=== PATIENT | male | born 1935 ===

== ENCOUNTER 2023-12-23 19:01 | Inpatient (IN) | payer BC, MEDICARE ==
[~2023-12-23 19:01] MED LIST: Iopamidol 300 61% 100 ML VIAL FS ONE
[2023-12-23 20:04] LABS: #Basophils 0.01 10x3/uL (0.0-0.2); #Eosinphils 0.01 10x3/uL (0.0-0.5); #Monocytes 0.96 10x3/uL (0.0-1.1); %Basophils 0.1 % (0.0-2.0); %Eosinophils 0.1 % (0.0-6.0); %Lymphocytes 5.8 % (18.0-47.0); %Monocytes 7.1 % (0.0-10.0); %Neutrophils 86.5 % (40.0-75.0); Hematocrit 31.5 % (38.8-50.0); Hemoglobin 10.4 g/dL (13.5-17.5); Mean Corpuscular Hemoglobin 30.1 pg (27.0-33.0); Mean Corpuscular Volume 91.3 fl (81.2-95.1); Mean Platelet Volume 10.9 fl (7.4-10.4); Platelet Count 283 10x3/uL (150-450); RBC Distribution Width 15.9 % (11.5-14.5); Red Blood Cell (RBC) Count 3.45 10x6/uL (4.32-5.72); White Blood Cell (WBC) Count 13.5 10x3/uL (3.5-10.5)
[2023-12-23 20:10] LABS: INR-International Normal Ratio 1.3; PTT 34.6 sec (22.0-33.0); Prothrombin Time 13.7 sec (9.5-12.1)
[2023-12-23 20:12] LABS: ALT (SGPT) 16 U/L (8-55); AST (SGOT) 30 U/L (5-34); Albumin 2.8 g/dL (3.4-4.8); Alkaline Phosphatase 100 U/L (40-110); Anion Gap 19 mmol/L (10-20); BUN (Urea Nitrogen) 52 mg/dL (8.4-25.7); Bilirubin, Total 0.9 mg/dL (0.2-1.2); Calc. Creatinine Clearance 0 mL/min (70-130); Calcium 9.5 mg/dL (7.8-10.44); Carbon Dioxide 26 mmol/L (23-31); Chloride 100 mmol/L (98-107); Estimated GFR 46; Globulin 4.5 g/dL (2.4-3.5); Glucose 158 mg/dL (83-110); Lipase 22 U/L (8-78); Potassium 4.5 mmol/L (3.5-5.1); Protein, Total 7.3 g/dL (5.8-8.1); Sodium 140 mmol/L (136-145)
[2023-12-23 20:17] LABS: Troponin I 0.031 ng/mL (< 0.028)
[2023-12-23] MEDS ORDERED: Metoprolol Tartrate 5 MG (5 mL) VIAL ONE (21:02)
[2023-12-23] MEDS ORDERED: Dextrose 5% in Water 1,000 ML IV PRN (22:01)
[2023-12-23] MEDS ORDERED: Ondansetron PF 4 MG/2 ML Vial IVP PRN (22:01)
[2023-12-23] MEDS ORDERED: Glucagon 1 MG/ML KIT IM PRN (22:01)
[2023-12-23] MEDS ORDERED: Dextrose 50% Abboject 50 ML SYRINGE SLOW IVP PRN (22:01)
[2023-12-23] MEDS ORDERED: Metoprolol Tartrate 5 MG (5 mL) VIAL IVP PRN (22:03)
[2023-12-23] MEDS ORDERED: Morphine 4 MG/ML VIAL ONE (22:23)
[2023-12-23] MEDS ORDERED: Ondansetron PF 4 MG/2 ML Vial ONE (22:23)
[2023-12-23] MEDS ORDERED: [UNRECOGNIZED DRUG - REMARK] IVPB PRN (22:25)
[2023-12-23] MEDS: Lactated Ringer's 1,000 ML IV SCH (23:05)
[2023-12-24] MEDS: Albumin 25% 25 GM (100 mL) BOT IVPB SCH (00:24)
[2023-12-24] MEDS: Metoprolol Tartrate 5 MG (5 mL) VIAL IVP SCH (04:23)
[2023-12-24] MEDS: Furosemide 20 MG (2 mL) VIAL SLOW IVP SCH (04:44)
[2023-12-24 04:54] LABS: Anion Gap 17 mmol/L (10-20); BUN (Urea Nitrogen) 53 mg/dL (8.4-25.7); Calc. Creatinine Clearance 67 mL/min (70-130); Calcium 9.6 mg/dL (7.8-10.44); Carbon Dioxide 27 mmol/L (23-31); Chloride 101 mmol/L (98-107); Estimated GFR 49; Glucose 147 mg/dL (83-110); Potassium 4.1 mmol/L (3.5-5.1); Sodium 141 mmol/L (136-145)
[2023-12-24 05:04] LABS: Troponin I 0.034 ng/mL (< 0.028)
[2023-12-24 05:11] LABS: INR-International Normal Ratio 1.2; PTT 35.3 sec (22.0-33.0); Prothrombin Time 13.3 sec (9.5-12.1)
[2023-12-24 05:13] LABS: #Neutrophils 8.75 10x3/uL (1.5-8.4); %Lymphocytes 6.7 % (18.0-47.0); %Monocytes 9.5 % (0.0-10.0); %Neutrophils 83.5 % (40.0-75.0); Hematocrit 29.1 % (38.8-50.0); Hemoglobin 9.2 g/dL (13.5-17.5); Mean Corpuscular HGB CONC 31.6 g/dL (32.0-36.0); Mean Corpuscular Hemoglobin 29.4 pg (27.0-33.0); Mean Platelet Volume 10.8 fl (7.4-10.4); Platelet Count 274 10x3/uL (150-450); Red Blood Cell (RBC) Count 3.13 10x6/uL (4.32-5.72); White Blood Cell (WBC) Count 10.5 10x3/uL (3.5-10.5)
[2023-12-24] MEDS: Heparin 10,000 UNITS/ 10 ML VIAL SLOW IVP SCH (06:03)
[2023-12-24] MEDS: Heparin 25,000 units/D5W 500 ML IVPB SCH (06:04)
[2023-12-24] MEDS ORDERED: Furosemide 20 MG (2 mL) VIAL SLOW IVP SCH (09:00)
[2023-12-24] MEDS ORDERED: levETIRAcetam in NS 500 MG in Premix 1 BAG IVPB SCH (09:00)
[2023-12-24] MEDS: levETIRAcetam 500 MG (5 mL) VIAL SLOW IVP SCH (09:25)
[2023-12-24] MEDS: Pantoprazole 40 MG VIAL IVP SCH (09:25)
[2023-12-24 09:28] VITALS: BMI 38.2
[2023-12-24] MEDS: Morphine 2 MG/ML VIAL SLOW IVP PRN (09:34)
[2023-12-24 12:40] LABS: INR-International Normal Ratio 1.2; PTT 67.6 sec (22.0-33.0); Prothrombin Time 13.2 sec (9.5-12.1)
[2023-12-24] MEDS ORDERED: EPINEPHrine 1 MG/ML VIAL ONE (13:53)
[2023-12-24] MEDS ORDERED: Bupivacaine PF 0.5% 30 ML VIAL ONE (13:53)
[2023-12-24] MEDS ORDERED: CEFAZOLIN 2 GM VIAL ONE (14:47)
[2023-12-24] MEDS ORDERED: Etomidate 40 MG (20 mL) VIAL ONE (14:47)
[2023-12-24] MEDS ORDERED: Phenylephrine 10 MG/ML VIAL ONE (14:47)
[2023-12-24] MEDS ORDERED: Vasopressin 20 UNITS/ML VIAL ONE (14:47)
[2023-12-24] MEDS ORDERED: Lidocaine 1% PF 5 ML VIAL ONE (14:52)
[2023-12-24] MEDS ORDERED: fentaNYL 50 mcg/mL 1 mL Vial ONE (14:52)
[2023-12-24] MEDS ORDERED: SUGAMMADEX SODIUM 200 MG/2 ML VIAL ONE ×2 (14:52→16:23)
[2023-12-24] MEDS ORDERED: Rocuronium Bromide 10 MG/ML (10ML VIAL) ONE (14:53)
[2023-12-24] MEDS ORDERED: PHENYLEPHRINE-NS 100 MCG/ML 10 ML SYRINGE ONE (15:09)
[2023-12-24] MEDS ORDERED: Ondansetron PF 4 MG/2 ML Vial ONE (16:16)
[2023-12-24 18:17] LABS: INR-International Normal Ratio 1.3; PTT 32.7 sec (22.0-33.0); Prothrombin Time 13.4 sec (9.5-12.1)
[2023-12-24 19:35] LABS: INR-International Normal Ratio 1.3; PTT 33.4 sec (22.0-33.0); Prothrombin Time 13.6 sec (9.5-12.1)
[2023-12-24] MEDS: HYDROmorphone 0.5 MG/0.5 ML SYRINGE SLOW IVP SCH (20:26)
[2023-12-25] MEDS: Sodium Chloride 0.9% 1,000 ML IV SCH ×2 (00:37→04:57)
[2023-12-25] MEDS: Digoxin 0.5 MG/2 ML AMP SLOW IVP SCH ×3 (00:47→05:01)
[2023-12-25] MEDS: Magnesium Sulfate/D5W 1 GM in Premix 1 BAG IVPB SCH (00:51)
[2023-12-25 01:15] LABS: ALV-art Gradient 90.635 mmHg (0-20); Actual Bicarbonate (HCO3a) 27.5 mEq/L (22-28); Analyzer IN Cardio CS ICU; Base Excess (BEa) 1.1 mEq/L (-2.0 to +3.0); CO2 Tension 53.3 mmHg (35.0-45.0); Calcium, Ionized (arterial) 1.12 mmol/L (1.12-1.30); Carboxyhemoglobin (COHb) 0.8 gm% (0.0-3.0); Critical Notified By: CP.PH; Hematocrit-ABG 27 % (42.0-52.0); Hemoglobin (Hb) 9.2 g/dL (14.0-18.0); O2 Tension (PaO2), arterial 70.9 mmHg (> 60.0); Puncture Site LBA; RapidComm Collect By CP.PH; pH, Arterial 7.331 (7.35-7.45)
[2023-12-25 01:40] LABS: #Basophils 0.01 10x3/uL (0.0-0.2); #Monocytes 0.57 10x3/uL (0.0-1.1); #Neutrophils 6.05 10x3/uL (1.5-8.4); %Basophils 0.1 % (0.0-2.0); %Lymphocytes 8.5 % (18.0-47.0); %Monocytes 7.8 % (0.0-10.0); %Neutrophils 83.3 % (40.0-75.0); Hematocrit 23.9 % (38.8-50.0); Hemoglobin 7.6 g/dL (13.5-17.5); Mean Corpuscular HGB CONC 31.8 g/dL (32.0-36.0); Mean Corpuscular Hemoglobin 29.7 pg (27.0-33.0); Mean Corpuscular Volume 93.4 fl (81.2-95.1); Mean Platelet Volume 10.7 fl (7.4-10.4); Platelet Count 250 10x3/uL (150-450); RBC Distribution Width 15.8 % (11.5-14.5); Red Blood Cell (RBC) Count 2.56 10x6/uL (4.32-5.72); White Blood Cell (WBC) Count 7.3 10x3/uL (3.5-10.5)
[2023-12-25] MEDS: Piperacillin/Tazobactam 3.375 GM in Sodium Chloride 0.9% 100 ML IVPB SCH ×2 (01:41→05:59)
[2023-12-25 01:50] LABS: INR-International Normal Ratio 1.3; PTT 31.7 sec (22.0-33.0); Prothrombin Time 13.7 sec (9.5-12.1)
[2023-12-25 01:53] LABS: Magnesium 1.8 mg/dL (1.6-2.6)
[2023-12-25] MEDS: VANCOMYCIN 2 GRAM/400 ML BAG 2 GM in Premix 1 BAG IVPB SCH (01:54)
[2023-12-25] MEDS: VANCOMYCIN 2 GRAM/400 ML BAG IVPB SCH (02:03)
[2023-12-25] MEDS: Albumin 25% 25 GM (100 mL) BOT IVPB SCH (02:05)
[2023-12-25 02:16] LABS: Anion Gap 17 mmol/L (10-20); BUN (Urea Nitrogen) 60 mg/dL (8.4-25.7); Calc. Creatinine Clearance 57 mL/min (70-130); Calcium 8.5 mg/dL (7.8-10.44); Carbon Dioxide 26 mmol/L (23-31); Chloride 105 mmol/L (98-107); Estimated GFR 40; Glucose 111 mg/dL (83-110); Potassium 4.1 mmol/L (3.5-5.1); Sodium 144 mmol/L (136-145)
[2023-12-25] MEDS: Albumin 25% 100 ML ONE (02:19)
[2023-12-25] MEDS: NOREPINEPHRINE 8 MG/250 ML-D5W 250 ML IVPB SCH (02:23)
[2023-12-25 03:06] LABS: Bilirubin Neg (Negative); Blood, Urine 250 (Negative); Clarity Slightly Cloudy (Clear); Glucose, Urine (Dipstick) Normal (Negative); Ketone, Urine 5 mg/dL (Negative); Leukocyte 500 (Negative); Nitrite Negative (Negative); Protein, Urine (Dipstick) 100 mg/dl (Neg-Trace); Specific Gravity, Urine 1.015 (1.005-1.030)
[2023-12-25 03:16] LABS: Bacteria/HPF 3+ HPF (None Seen); CAUTI Indications for Culture Alt mental st,lethar
[2023-12-25 03:18] LABS: Urine Culture Reflex Yes Yes
[2023-12-25] MEDS: Etomidate 40 MG (20 mL) VIAL IVP SCH (04:31)
[2023-12-25] MEDS: Rocuronium Bromide 10 MG/ML (10ML VIAL) IVP SCH (04:34)
[2023-12-25] MEDS: Rocuronium Bromide 10 MG/ML (10ML VIAL) ONE (04:57)
[2023-12-25 05:20] LABS: Actual Bicarbonate (HCO3a) 26.4 mEq/L (22-28); Analyzer IN Cardio CS ICU; Base Excess (BEa) 0.2 mEq/L (-2.0 to +3.0); CO2 Tension 51.5 mmHg (35.0-45.0); Carboxyhemoglobin (COHb) 0.8 gm% (0.0-3.0); Critical Notified By: CP.PH; Hematocrit-ABG 23 % (42.0-52.0); Hemoglobin (Hb) 7.7 g/dL (14.0-18.0); O2 Tension (PaO2), arterial 83.1 mmHg (> 60.0); Potassium - ABG Lab 4.09 mmol/L (3.70-5.30); Puncture Site Arterial Line; RapidComm Collect By CBN; pH, Arterial 7.328 (7.35-7.45)
[2023-12-25 05:22] LABS: ALV-art Gradient 137.725 mmHg (0-20)
[2023-12-25] MEDS: Hydrocortisone Sod Succ/PF 100 mg/2 ml Vial IVP SCH (05:59)
[2023-12-25 09:31] LABS: INR-International Normal Ratio 1.2; PTT 34.7 sec (22.0-33.0); Prothrombin Time 13.1 sec (9.5-12.1)
[2023-12-25 10:28] LABS: Hematocrit 24.1 % (38.8-50.0); Hemoglobin 7.8 g/dL (13.5-17.5)
[2023-12-25] MEDS ORDERED: Propofol BOLUS 1,000 MG/100 ML VIAL IV PRN (11:45)
[2023-12-25] MEDS ORDERED: Propofol 1,000 MG/100 ML VIAL IV PRN (11:45)
[2023-12-25] MEDS: FENTANYL 2,000MCG/100-0.9%NACL 100 ML IVPB SCH (12:06)
[2023-12-25 12:16] LABS: INR-International Normal Ratio 1.2; PTT 35.5 sec (22.0-33.0); Prothrombin Time 13.2 sec (9.5-12.1)
[2023-12-25] MEDS ORDERED: Phenylephrine 40 MG in Sodium Chloride 0.9% 250 ML 250 ML IVPB SCH (14:30)
[2023-12-25 14:45] LABS: Hematocrit 22.9 % (38.8-50.0); Hemoglobin 7.3 g/dL (13.5-17.5)
[2023-12-25] MEDS: Phenylephrine 40 MG/NS 250 ML 40 MG in Premix 1 BAG IVPB SCH (16:06)
[2023-12-25] MEDS: Furosemide 40 MG (4 mL) VIAL SLOW IVP SCH (16:06)
[2023-12-25] MEDS: Ventilator Sedation Protocol 1 EACH FS ONE (19:10)
[2023-12-25] MEDS: HumaLOG 300 UNITS/3 ML VIAL SC PRN (23:30)
[2023-12-26 04:53] LABS: #Basophils 0.01 10x3/uL (0.0-0.2); #Monocytes 1.11 10x3/uL (0.0-1.1); #Neutrophils 11.32 10x3/uL (1.5-8.4); %Basophils 0.1 % (0.0-2.0); %Lymphocytes 4.9 % (18.0-47.0); %Monocytes 8.4 % (0.0-10.0); %Neutrophils 85.8 % (40.0-75.0); Hematocrit 20.1 % (38.8-50.0); Hemoglobin 6.7 g/dL (13.5-17.5); Mean Corpuscular HGB CONC 33.3 g/dL (32.0-36.0); Mean Corpuscular Volume 90.1 fl (81.2-95.1); Mean Platelet Volume 10.7 fl (7.4-10.4); Platelet Count 224 10x3/uL (150-450); Red Blood Cell (RBC) Count 2.23 10x6/uL (4.32-5.72); White Blood Cell (WBC) Count 13.2 10x3/uL (3.5-10.5)
[2023-12-26 05:06] LABS: Anion Gap 20 mmol/L (10-20); BUN (Urea Nitrogen) 66 mg/dL (8.4-25.7); Calc. Creatinine Clearance 51 mL/min (70-130); Calcium 8.4 mg/dL (7.8-10.44); Carbon Dioxide 21 mmol/L (23-31); Chloride 105 mmol/L (98-107); Estimated GFR 35; Glucose 166 mg/dL (83-110); Potassium 3.8 mmol/L (3.5-5.1); Sodium 142 mmol/L (136-145)
[2023-12-26 05:12] LABS: Vancomycin, Random 59.4 ug/mL (See Comment)
[2023-12-26] MEDS: Furosemide 40 MG (4 mL) VIAL SLOW IVP SCH ×2 (09:47→15:22)
[2023-12-26 10:13] LABS: Vancomycin, Random 32.2 ug/mL (See Comment)
[2023-12-27] MEDS: Fentanyl BOLUS 250 ML IVPB PRN (00:42)
[2023-12-27 04:14] LABS: #Basophils 0.02 10x3/uL (0.0-0.2); #Eosinphils 0.02 10x3/uL (0.0-0.5); #Monocytes 1.11 10x3/uL (0.0-1.1); #Neutrophils 10.04 10x3/uL (1.5-8.4); %Basophils 0.2 % (0.0-2.0); %Eosinophils 0.2 % (0.0-6.0); %Lymphocytes 7.1 % (18.0-47.0); %Monocytes 9.1 % (0.0-10.0); %Neutrophils 82.1 % (40.0-75.0); Hematocrit 25.1 % (38.8-50.0); Hemoglobin 8.6 g/dL (13.5-17.5); Mean Corpuscular HGB CONC 34.3 g/dL (32.0-36.0); Mean Corpuscular Hemoglobin 30.2 pg (27.0-33.0); Mean Corpuscular Volume 88.1 fl (81.2-95.1); Mean Platelet Volume 10.7 fl (7.4-10.4); Platelet Count 222 10x3/uL (150-450); RBC Distribution Width 16.2 % (11.5-14.5); Red Blood Cell (RBC) Count 2.85 10x6/uL (4.32-5.72); White Blood Cell (WBC) Count 12.2 10x3/uL (3.5-10.5)
[2023-12-27 04:41] LABS: Anion Gap 18 mmol/L (10-20); BUN (Urea Nitrogen) 66 mg/dL (8.4-25.7); Calc. Creatinine Clearance 55 mL/min (70-130); Calcium 8.7 mg/dL (7.8-10.44); Carbon Dioxide 22 mmol/L (23-31); Chloride 111 mmol/L (98-107); Estimated GFR 38; Glucose 149 mg/dL (83-110); Sodium 148 mmol/L (136-145)
[2023-12-27] MEDS: Potassium Chloride 20 MEQ in Premix 1 BAG IVPB SCH (05:17)
[2023-12-27 05:28] LABS: Magnesium 2.1 mg/dL (1.6-2.6)
[2023-12-27] MEDS: Hydrocortisone Sod Succ/PF 100 mg/2 ml Vial IVP SCH (08:18)
[2023-12-27] MEDS: Morphine 2 MG/ML VIAL SLOW IVP PRN (08:20)
[2023-12-27 10:45] LABS: Potassium 3.4 mmol/L (3.5-5.1)
[2023-12-27] MEDS ORDERED: Vancomycin 1 GM in Sodium Chloride 0.9% 250 ML 250 ML IVPB SCH (11:00)
[2023-12-28] MEDS: Dextrose 5% in Water 1,000 ML IV SCH (01:50)
[2023-12-28 03:04] LABS: #Basophils 0.01 10x3/uL (0.0-0.2); #Eosinphils 0.02 10x3/uL (0.0-0.5); #Monocytes 0.67 10x3/uL (0.0-1.1); #Neutrophils 8.25 10x3/uL (1.5-8.4); %Basophils 0.1 % (0.0-2.0); %Eosinophils 0.2 % (0.0-6.0); %Lymphocytes 6.5 % (18.0-47.0); %Monocytes 6.9 % (0.0-10.0); %Neutrophils 85.3 % (40.0-75.0); Hematocrit 26.7 % (38.8-50.0); Hemoglobin 8.7 g/dL (13.5-17.5); Mean Corpuscular HGB CONC 32.6 g/dL (32.0-36.0); Mean Platelet Volume 10.1 fl (7.4-10.4); Platelet Count 225 10x3/uL (150-450); RBC Distribution Width 16.3 % (11.5-14.5); White Blood Cell (WBC) Count 9.7 10x3/uL (3.5-10.5)
[2023-12-28 03:18] LABS: Anion Gap 17 mmol/L (10-20); BUN (Urea Nitrogen) 66 mg/dL (8.4-25.7); Calc. Creatinine Clearance 59 mL/min (70-130); Calcium 8.7 mg/dL (7.8-10.44); Carbon Dioxide 21 mmol/L (23-31); Chloride 116 mmol/L (98-107); Estimated GFR 42; Glucose 161 mg/dL (83-110); Potassium 2.8 mmol/L (3.5-5.1); Vancomycin, Random 16.1 ug/mL (See Comment)
[2023-12-28 03:49] LABS: Critical Call Chemistry NUR.TG9 @0330; Sodium 151 mmol/L (136-145)
[2023-12-28] MEDS: Potassium Chloride 40 MEQ in Dextrose 5% in Water 1,000 ML IV SCH (04:32)
[2023-12-29 02:52] LABS: #Basophils 0.02 10x3/uL (0.0-0.2); #Eosinphils 0.03 10x3/uL (0.0-0.5); #Monocytes 0.69 10x3/uL (0.0-1.1); #Neutrophils 6.19 10x3/uL (1.5-8.4); %Basophils 0.3 % (0.0-2.0); %Eosinophils 0.4 % (0.0-6.0); %Lymphocytes 12.5 % (18.0-47.0); %Monocytes 8.6 % (0.0-10.0); %Neutrophils 77.3 % (40.0-75.0); Hematocrit 27.5 % (38.8-50.0); Hemoglobin 9.2 g/dL (13.5-17.5); Mean Corpuscular HGB CONC 33.5 g/dL (32.0-36.0); Mean Corpuscular Hemoglobin 30.3 pg (27.0-33.0); Mean Corpuscular Volume 90.5 fl (81.2-95.1); Mean Platelet Volume 10.7 fl (7.4-10.4); Platelet Count 205 10x3/uL (150-450); RBC Distribution Width 16.5 % (11.5-14.5); Red Blood Cell (RBC) Count 3.04 10x6/uL (4.32-5.72)
[2023-12-29 03:03] LABS: Anion Gap 13 mmol/L (10-20); BUN (Urea Nitrogen) 60 mg/dL (8.4-25.7); Calc. Creatinine Clearance 64 mL/min (70-130); Calcium 8.4 mg/dL (7.8-10.44); Carbon Dioxide 24 mmol/L (23-31); Chloride 116 mmol/L (98-107); Estimated GFR 47; Glucose 220 mg/dL (83-110); Potassium 3.1 mmol/L (3.5-5.1); Sodium 150 mmol/L (136-145)
[2023-12-29 04:01] LABS: Magnesium 2.1 mg/dL (1.6-2.6)
[2023-12-29] MEDS: Potassium Bicarbonate/Cit Ac 20 MEQ TAB PER TUBE SCH (05:33)
[2023-12-30 04:11] LABS: Anion Gap 16 mmol/L (10-20); BUN (Urea Nitrogen) 47 mg/dL (8.4-25.7); Calc. Creatinine Clearance 75 mL/min (70-130); Calcium 8.4 mg/dL (7.8-10.44); Carbon Dioxide 22 mmol/L (23-31); Chloride 114 mmol/L (98-107); Estimated GFR 56; Glucose 238 mg/dL (83-110); Potassium 3.6 mmol/L (3.5-5.1); Sodium 148 mmol/L (136-145)
[2023-12-30 04:23] VITALS: BMI 38.2
[2023-12-30 04:48] LABS: #Basophils 0.02 10x3/uL (0.0-0.2); #Eosinphils 0.07 10x3/uL (0.0-0.5); #Neutrophils 5.95 10x3/uL (1.5-8.4); %Basophils 0.2 % (0.0-2.0); %Eosinophils 0.9 % (0.0-6.0); %Lymphocytes 15.6 % (18.0-47.0); %Monocytes 7.5 % (0.0-10.0); %Neutrophils 74.2 % (40.0-75.0); Hematocrit 28.4 % (38.8-50.0); Hemoglobin 9.3 g/dL (13.5-17.5); Mean Corpuscular HGB CONC 32.7 g/dL (32.0-36.0); Mean Corpuscular Hemoglobin 29.6 pg (27.0-33.0); Mean Corpuscular Volume 90.4 fl (81.2-95.1); Mean Platelet Volume 10.9 fl (7.4-10.4); Platelet Count 217 10x3/uL (150-450); RBC Distribution Width 16.8 % (11.5-14.5); Red Blood Cell (RBC) Count 3.14 10x6/uL (4.32-5.72)
[2023-12-30] MEDS: Lorazepam 2 MG/ML VIAL SLOW IVP PRN ×2 (11:13→12:27)
[2023-12-30] MEDS: Morphine 4 MG/ML VIAL SLOW IVP SCH (13:49)
[2023-12-30] MEDS ORDERED: Morphine 2 MG/ML VIAL SLOW IVP SCH (14:00)
[2023-12-30] MEDS: Morphine 4 MG/ML VIAL SLOW IVP PRN (16:04)
[2023-12-30] MEDS: Scopolamine 1 mg/72 hour Patch TD PRN (16:08)
[2024-01-01] MEDS: Atropine Sulfate 1% Ophth Soln 5 ml Bottle SL PRN (15:19)
[2024-01-03] MEDS: Glycopyrrolate 0.2 MG/ML 5 ML SYRINGE SLOW IVP SCH (08:37)
[2024-01-03 17:40] VITALS: BP 80/47; TEMP 100.8
[2024-01-03] MEDS: Acetaminophen 650 MG Suppository PR PRN (17:44)
== END 2024-01-03 19:40 | disposition expired | DRG 329 ==
LOC: CSHERS 19:01 → CSHTELE 21:53 → CSHICU 12-24 16:10 → CSHIMCU 12-25 17:36 → CSHTELE 12-30 15:29
PROVIDERS: ADMIT Student in an Organized Health Care Education/Training Program; ATTEND Family Medicine
PROC: 30233J1 Transfusion of Nonautologous Serum Albumin into Peripheral Vein, Percutaneous Approach (ICD-10-PCS; 2023-12-23)
PROC: 0DBU0ZZ Excision of Omentum, Open Approach (ICD-10-PCS; principal; 2023-12-24)
PROC: 0DB80ZZ Excision of Small Intestine, Open Approach (ICD-10-PCS; 2023-12-24)
PROC: 0WQF0ZZ Repair Abdominal Wall, Open Approach (ICD-10-PCS; 2023-12-24)
PROC: 3E033XZ Introduction of Vasopressor into Peripheral Vein, Percutaneous Approach (ICD-10-PCS; 2023-12-24)
PROC: 0BH17EZ Insertion of Endotracheal Airway into Trachea, Via Natural or Artificial Opening (ICD-10-PCS; 2023-12-25)
PROC: 30233N1 Transfusion of Nonautologous Red Blood Cells into Peripheral Vein, Percutaneous Approach (ICD-10-PCS; 2023-12-25)
PROC: 4A133R1 Monitoring of Arterial Saturation, Peripheral, Percutaneous Approach (ICD-10-PCS; 2023-12-25)
PROC: 3E03329 Introduction of Other Anti-infective into Peripheral Vein, Percutaneous Approach (ICD-10-PCS; 2023-12-25)
PROC: 5A09357 Assistance with Respiratory Ventilation, Less than 24 Consecutive Hours, Continuous Positive Airway Pressure (ICD-10-PCS; 2023-12-25)
PROC: 5A1955Z Respiratory Ventilation, Greater than 96 Consecutive Hours (ICD-10-PCS; 2023-12-25)
DX: K42.0 Umbilical hernia with obstruction, without gangrene (principal); A41.9 Sepsis, unspecified organism; R65.21 Severe sepsis with septic shock; J96.01 Acute respiratory failure with hypoxia; K55.029 Acute infarction of small intestine, extent unspecified; J90 Pleural effusion, not elsewhere classified; N17.9 Acute kidney failure, unspecified; Z51.5 Encounter for palliative care; Z66 Do not resuscitate; K43.6 Other and unspecified ventral hernia with obstruction, without gangrene; I48.91 Unspecified atrial fibrillation; F03.90 Unspecified dementia, unspecified severity, without behavioral disturbance, psychotic disturbance, mood disturbance, and anxiety; G40.909 Epilepsy, unspecified, not intractable, without status epilepticus; G47.33 Obstructive sleep apnea (adult) (pediatric); E78.5 Hyperlipidemia, unspecified; E66.01 Morbid (severe) obesity due to excess calories; I11.0 Hypertensive heart disease with heart failure; I50.9 Heart failure, unspecified; I95.9 Hypotension, unspecified; D64.89 Other specified anemias; F32.A Depression, unspecified; E11.42 Type 2 diabetes mellitus with diabetic polyneuropathy; E03.9 Hypothyroidism, unspecified; D63.8 Anemia in other chronic diseases classified elsewhere; Z79.01 Long term (current) use of anticoagulants; Z79.82 Long term (current) use of aspirin; Z79.899 Other long term (current) drug therapy; Z68.38 Body mass index [BMI] 38.0-38.9, adult
CPT/HCPCS: 36415; 36416; 36430; 36600; 71045; 74177; 80048; 80053; 80202; 81001; 82805; 83605; 83690; 83735; 83880; 84443; 84484; 85025; 85610; 85730; 86850; 86900; 86901; 87040; 87086; 88305; 88307; 93005; 93306; 94002; 94003; 94150; 94660; 94760; 94762; 96374; 96375; 97139; A6258; C9113; J0171; J0665; J1160; J1170; J1644; J1720; J1815; J1940; J1953; J2060; J2270; J2272; J2371; J2405; J2543; J3010; J3370; J3475; J3480; J3490; J7050; J7070; J7120; P9016; P9047; Q9967